=== PATIENT | female | born 1965 | race Caucasian/White ===

== ENCOUNTER → 2019-04-09 | Day surgery (SDC) | payer OTHER ==
[~2019-04-09] MED LIST: ALBUTEROL SULFATE 2.5 MG/3 ML NEBU. NEB PRN; ATROPINE 0.5 MG/5 ML DISP.SYRIN. IV PRN; IV RINGERS SOLUTION,LACTATED 1,000 ML IV SCH; LIDOCAINE 2% PF Vial for OR 5 ML VIAL. ONE; NALOXONE 0.4 MG/ML VIAL. IV PRN; ONDANSETRON PF 4 MG/2 ML VIAL. IV PRN; PROPOFOL 40 ML IV ONE; TOPI50TA8 PO; diphenhydrAMINE 50 MG/ML VIAL IV PRN
[2019-04-09 12:01] VITALS: BP 111/78
--- NOTE | 2019-04-12 18:06 | PATHOLOGY ---
[facility] Accession Number: [id number] . 01 Material submitted: . colon - POLYP DESCENDING COLON. Modifiers: descending . 01 Clinical history: . Colonoscopy screening . 02 Diagnosis: Colon biopsy, descending colon polyp: - Consistent with hyperplastic polyp/prominent mucosal fold. (M:[facility] 04/12/2019) P/04/12/2019 . 02 Comment: There are no adenomatous changes or evidence of malignancy. ([facility] 04/12/2019) . 02 Electronically signed: . Quinn Giles MD, Pathologist NPI- [id number] . 01 Gross description: . Received in formalin labeled "[place], [place], polyp descending," is a single segment of hardy soft tissue measuring 0.3 cm in maximum dimension. The specimen is entirely submitted in cassette A1. ([facility]; 04/09/2019) TOB/TOB . 02 Pathologist provided ICD-10: K63.5 . 02 CPT . 271235 Specimen Comment: A courtesy copy of this report has been sent to Specimen Comment: [phone]. Specimen Comment: Report sent to Performed at: 01 [facility] [address], [place] [id number] MD Yonathan Guerrero MD Phone: [phone] Performed at: [address] [facility] [address] [place], [place] [id number] MD Quinn Giles MD Phone: [phone]
== END ==
LOC: SURG 10:13
PROVIDERS: ATTEND Internal Medicine Gastroenterology
DX: Z12.11 Encounter for screening for malignant neoplasm of colon (principal); K63.5 Polyp of colon; K57.30 Diverticulosis of large intestine without perforation or abscess without bleeding; K64.0 First degree hemorrhoids
CPT/HCPCS: 45380; J2704; J7120; 88305; J2001